=== PATIENT | male | born 1960 | race Caucasian/White ===

== ENCOUNTER 2024-07-24 19:16 | Emergency (ER) | payer MEDICARE, SELFPAY ==
--- NOTE | ~2024-07-24 | CT_ITS ---
CT brain wo con Ordering provider: Antony Guzman MD History: 63 years Male with . fall, facial trauma . Comparison: None. Technique: CT of the head without contrast. Radiation reduction technique utilized.The dose-length pr oduct was 605.33 mGy-cm. FINDINGS: BRAIN PARENCHYMA AND CSF SPACES: No midline shift, mass effect or hemorrhage. The brain parenchyma a nd CSF spaces are otherwise normal. VISUALIZED PARANASAL SINUSES: Well aerated. MASTOIDS: Well aerated. BONES: The bones appear intact. SOFT TISSUES: Visualized nasopharynx is normal. Superficial soft tissues are normal. IMPRESSION: No acute intracranial findings. Reviewed, dictated and finalized at location A.
--- NOTE | ~2024-07-24 | CT_ITS ---
CT facial & cervical spine wo Ordering provider: Antony Guzman MD History: . Fall, head injury, nose lac . Comparison: None. Technique: Thin slice axial CT of the facial bones was performed without contrast. Coronal and sagit larisa reformatted images were also obtained. . Automated exposure control and iterative reconstruction technique were employed. The dose-length product was 424.60 mGy-cm. FINDINGS: PARANASAL SINUSES: Right maxillary and ethmoid sinus disease. Otherwise, Well aerated. Left nasal septal deviation. BONES: No facial fracture including no nasal bone fracture. ORBITS AND SUPERFICIAL SOFT TISSUES: The optic globes and orbits are normal. The superficial soft tis sues are normal. VISUALIZED MASTOIDS: Well aerated. LIMITED VISUALIZED BRAIN PARENCHYMA: Normal. IMPRESSION: No facial fracture. Right maxillary and ethmoid sinus disease. CT facial & cervical spine wo Ordering provider: Antony Guzman MD History: . Fall, head injury, nose lac . Comparison: None. Technique: CT of the cervical spine was performed without contrast. Sagittal and coronal reformatted images were also obtained and reviewed. Automated exposure control and iterative reconstruction ana hnique were employed. The dose-length product was 424.60 mGy-cm. FINDINGS: VERTEBRAE: No subluxation or acute fracture. The occipital condyles are intact. Degenerative changes of the spine. DISC SPACES: Narrowing of the disc C3-C4, C4-C5, C5-C6 and C6-C7. Multilevel facet joint disease. Mul tilevel uncovertebral joint osteoarthritic changes. Bilateral narrowing of the foramina at the level of C3-C4, C4-C5, C5-C6 and C6-C7. Spinal canal stenosis seen at the level of C3-C4, C4-C5 and C5-C6. PARASPINOUS SOFT TISSUES: Normal. IMPRESSION: No acute osseous abnormality cervical spine. Multilevel degenerative disc disease. Highly Reviewed, dictated and finalized at location A. IMPRESSION: No facial fracture. Right maxillary and ethmoid sinus disease. CT facial & cervical spine wo Ordering provider: Antony Guzman MD History: . Fall, head injury, nose lac . Comparison: None. Technique: CT of the cervical spine was performed without contrast. Sagittal a nd coronal reformatted images were also obtained and reviewed. Automated expos ure control and iterative reconstruction technique were employed. The dose-madelyn th product was 424.60 mGy-cm. FINDINGS: VERTEBRAE: No subluxation or acute fracture. The occipital condyles are intact. Degenerative changes of the spine. DISC SPACES: Narrowing of the disc C3-C4, C4-C5, C5-C6 and C6-C7. Multilevel fa cet joint disease. Multilevel uncovertebral joint osteoarthritic changes. Bilat eral narrowing of the foramina at the level of C3-C4, C4-C5, C5-C6 and C6-C7. S patricia canal stenosis seen at the level of C3-C4, C4-C5 and C5-C6. PARASPINOUS SOFT TISSUES: Normal.
--- OUTSIDE RECORDS SUMMARY | 2024-07-24 19:18 | XMS_ITS | Clinical Summary ---
Author Organization [facility] Address [address] [place] [address] Care Team Providers Care Supervisor Packing Name Role Phone Mukul Bloom MD Primary Care Provider [phone] Allergies No known active allergies Medications lisinopriL (PRINIVIL,ZESTRIL ) 10 mg tabletIndications :Essential hypertension Take 1 tablet (10 mg total) by mouth daily 30 tablet 5 01/16/2021 Active Active Problems No known active problems Surgical History Surgery Date Site/Laterality Comments HAND SURGERY left 5th digit CERVICAL SPINE SURGERY post fracture Medical History Medical History Date Comments Hypertension Family History Medical History Relation Name Comments No Known Problems Brother 1 No Known Problems Brother 2 No Known Problems Brother 3 No Known Problems Brother 4 Arthritis Father Heart disease Father Cancer Mother No Known Problems Sister 1 Immunodeficiency Sister 2 Relation Name Status Comments Brother 1 Alive Brother 2 Alive Brother 3 Alive Brother 4 Alive Father Alive Mother ovarian Sister 1 Alive Sister 2 Alive Social History Tobacco Use Types Packs/Day Years Used Date Smoking Tobacco: Never Smokeless Tobacco: Never AUDIT-C Answer Date Recorded Q1: How often do you have a drink containing alc ohol? 2-4 times a month 01/16/2021 Q2: How many drinks containi ng alcohol do you have on a typical day when you are drinking? 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 Gender Identity Not on file Sexual Orientation Not on file Obstetrics History Last Filed Vital Signs Vital Sign Reading Time Taken Comments Blood Pressure 184/108 01/16/2021 11:44 AM CDT Pulse 102 01/16/2021 11:44 AM CDT Temperature 36.5 C (97.7 F) 01/16/2021 11:44 AM CDT Respiratory Rate 20 01/16/2021 11:44 AM CDT Oxygen Saturation 97% 01/16/2021 11:44 AM CDT Inhaled Oxygen Concentration - - Weight 123.4 kg (272 lb) 02/15/2021 9:12 AM CDT Height 182.9 cm (6') 02/15/2021 9:12 AM CDT Body Mass Index 36.89 02/15/2021 9:12 AM CDT Plan of Treatment Not on file Care Teams Supervisor Packing Relationship Specialty Start Date End Date Mukul Bloom MD PCP - General Family Medicine 01/09/21
--- OUTSIDE RECORDS SUMMARY | 2024-07-24 19:18 | XMS_ITS | Referral Summary ---
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
[2024-07-24 19:22] VITALS: BP 221/118; PULSE 100; RESP 20; TEMP 36.9; O2SAT 99
--- NOTE | 2024-07-24 19:45 | PC.NURSE ---
C collar on placed on patient in triage. Readjusted in room by this RN.
--- NOTE | 2024-07-24 19:50 | ED_ITS ---
HPI - General Adult General Chief complaint: Fall Stated complaint: fall, neck pain, tingles in arm, facial injury Time Seen by Provider: 07/24/24 19:41 History of Present Illness HPI narrative: Patient is 63-year-old gentleman presents emergency department with chief complaint of fall patient reports that he tripped while in a parking lot struck his face against a parking block patient reports no loss of consciousness reports that he has a small laceration to his nose and reports that he has pain in his neck area the patient states that and 89 he had a fracture in his cervical spine and had significant motor weakness at that time and sensory deficits the patient states that he was seen at [facility] after that injury and reports that he now just has pins and needles in his upper extremities going from his shoulder down to his wrist patient states that his strength is good in his upper extremities reports that he can still feel things but it feels as though there are pins and needles patient reports sensation is very similar to whenever he had his spinal fracture in the past the patient denies bowel or bladder incontinence denies weakness in his legs reports that he is unsure of his last tetanus shot Related Data Allergies Allergy/AdvReac Type Severity Reaction Status Date / Time No Known Allergies Allergy Verified 07/24/24 19:17 Review of Systems Review of Systems: A 10 system review of systems was completed on the patient and is negative except for what is stated in the HPI. Nursing and ancillary documentation was reviewed. Exam Narrative: GENERAL: Well-appearing, well-nourished, and in no acute distress. HEAD: Normocephalic, . EYES: PERRLA and EOMI. ENT: Nares clear, no rhinorrhea or epistaxis. Mucous membranes moist. There is a abrasion/laceration to the nose NECK: Supple. CHEST: Clear to auscultation. No respiratory distress. HEART: Regular rate and rhythm. No murmur heard. Normal peripheral pulses. ABDOMEN: Soft, nontender, nondistended, normal active bowel sounds. EXTREMITIES: Normal range of motion. No edema. There is an abrasion present the right upper extremity SKIN: Warm, dry, no rash. NEURO: No focal deficits. Alert and oriented x3. GCS 15 moves all extremities equally has good strength in all extremities focal this the there is slight decreased sensation in the upper extremities PSYCH: Normal mood and affect. Course Vital Signs Vital signs: Vital Signs Temperature 36.9 C 04/11/25 19:22 Pulse Rate 100 07/24/24 19:22 Respiratory Rate 20 07/24/24 19:22 Blood Pressure 221/118 H 07/24/24 19:22 Pulse Oximetry 99 07/24/24 19:22 Temperature 36.9 C 07/24/24 19:22 Pulse Rate 94 07/24/24 21:38 Respiratory Rate 16 07/24/24 21:38 Blood Pressure 174/95 H 07/24/24 21:38 Pulse Oximetry 97 07/24/24 21:38 Medical Decision Making MDM Narrative Medical decision making narrative: Differential diagnosis includes spinal cord injury, cervical spine fracture, head injury CT scan head C-spine showed fractures or was significant should disease the cervical spine Given there is no fracture there was concern for spinal cord injury without radiographic abnormality. Case was discussed with Dr. Sylvester at the [facility] emergency department and was accepted to the [facility] ER Vital Signs Vital Signs: Vital Signs Temperature 36.9 C 07/24/24 19:22 Pulse Rate 100 07/24/24 19:22 Respiratory Rate 20 07/24/24 19:22 Blood Pressure 221/118 H 07/24/24 19:22 Pulse Oximetry 99 07/24/24 19:22 Temperature 36.9 C 07/24/24 19:22 Pulse Rate 94 07/24/24 21:38 Respiratory Rate 16 07/24/24 21:38 Blood Pressure 174/95 H 07/24/24 21:38 Pulse Oximetry 97 07/24/24 21:38 Critical Care Time Critical Care Time Critical Care Time: Yes Total Critical Care Time: 35 Discharge Plan Discharge Clinical Impression: Fall from ground level, SCIWORA (spinal cord injury without radiographic abnormality) Patient Disposition: Acute Care Hospital Condition: Stable Patient Language: Greenlandic Follow-up/Referrals: PHYSICIAN,BINDERY PRODUCTION MANAGER [Primary Care Provider] - Time of Disposition: 22:21
--- OUTSIDE RECORDS SUMMARY | 2024-07-24 19:59 | XMS_ITS | Referral Summary ---
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
--- OUTSIDE RECORDS SUMMARY | 2024-07-24 19:59 | XMS_ITS | Clinical Summary ---
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
[2024-07-24] MEDS: TETANUS,DIPHTHERIA,AC PERTUSSIS ADULT (0.5 ML) BOOSTRIX IM (20:05)
[2024-07-24 20:07] VITALS: BP 191/113; PULSE 107; RESP 16; O2SAT 98
[2024-07-24 20:30] VITALS: BP 182/100; PULSE 93; RESP 17; O2SAT 95
[2024-07-24 21:38] VITALS: BP 174/95; PULSE 94; RESP 16; O2SAT 97
--- NOTE | 2024-07-24 22:13 | PC.NURSE ---
This RN went into room and patient had removed his own c-collar. This RN placed c collar back on patient and instructed patient to keep it on. ERP notified. ERP in room speaking with patient now at this time.
--- NOTE | 2024-07-24 22:31 | PC.NURSE ---
Report called to [address] at [facility] ER at 2229.
[2024-07-24 22:50] LABS: Basophils Percent Auto 0.2 % (0.2-1.2); Eosinophils Absolute Auto 0.1 K/mm3 (0-0.3); Hematocrit 46.3 % (42.0-52.0); Hemoglobin 15.8 g/dL (14.0-18.0); Immature Granulocyte Absolute 0.03 K/mm3 (0.00-0.031); Immature Granulocyte Percent A 0.3 % (0-0.5); Lymphocytes Absolute Auto 2.67 K/mm3 (0.9-3.2); Lymphocytes Percent Auto 25.3 % (18.3-44.2); Mean Corpuscular HGB Conc 34.1 g/dl (32-36); Mean Corpuscular Hemoglobin 31.2 pg (26-34); Mean Corpuscular Volume 91.5 fl (80-100); Mean Platelet Volume 10.8 fl (7.4-10.4); Monocytes Absolute Auto 0.8 K/mm3 (0.1-0.6); Monocytes Percent Auto 7.4 % (2.6-8.5); Neutrophils Percent Auto 65.8 % (45.5-73.1); Platelet Count Result 186 k/mm3 (150-375); Red Blood Count 5.06 M/mm3 (4.6-6.20); Red Cell Distribution Width 13.1 % (11.5-14.5); White Blood Count 10.6 K/mm3 (4.5-10.0)
[2024-07-24 23:01] VITALS: BP 198/100; PULSE 92; RESP 17; O2SAT 97
[2024-07-24 23:02] LABS: INR 0.9; Prothrombin Time 12.8 Seconds (11.1-14.7)
[2024-07-24 23:03] LABS: Partial Thromboplastin Time 24.3 Seconds (22.3-36.8)
[2024-07-24 23:42] LABS: Alanine Aminotransferase 37 U/L (6-50); Albumin Level 4.1 g/dL (3.5-5.1); Alkaline Phosphatase 142 U/L (38-126); Anion Gap 10 mmol/L (4-12); Aspartate Amino Transferase 32 U/L (17-59); Bilirubin,Total 0.6 mg/dL (0.2-1.3); Blood Urea Nitrogen 11 mg/dL (9-20); Calcium 8.8 mg/dL (8.4-10.2); Carbon Dioxide 27 mmol/L (22-30); Chloride 99 mmol/L (98-107); Estimated CRCL calculation 130 ml/min; Estimated Glomerular Filt Rate > 60; Glucose 397 mg/dL (65-110); Potassium 3.9 mmol/L (3.4-5.0); Sodium 136 mmol/L (137-145)
== END 2024-07-24 23:02 | disposition short-term general hospital (02) ==
PROVIDERS: Emergency Provider Emergency Medicine
DX: S14.109A Unspecified injury at unspecified level of cervical spinal cord, initial encounter (principal); Z23 Encounter for immunization; W01.198A Fall on same level from slipping, tripping and stumbling with subsequent striking against other object, initial encounter; J32.0 Chronic maxillary sinusitis; J32.2 Chronic ethmoidal sinusitis
CPT/HCPCS: 36415; 70450; 70486; 72125; 80053; 85025; 85610; 85730; 90471; 90715; 99285